=== PATIENT | male | born 1995 | race Caucasian/White ===

== ENCOUNTER 2018-01-09 21:50 | Emergency (ER) | payer SELFPAY ==
[~2018-01-09] VITALS: Ht 177.8 cm; Wt 68.9 kg
[2018-01-09 21:55] VITALS: BP 147/82
--- NOTE | 2018-01-09 22:00 | NUR ---
Pt BIBSELF FROM HOME, C/O LEFT FOOT PAIN S/P FALLING OFF STAGE. Pt DENIES ANY HEAD TRAUMA. DENIES KO. NO DEFORMITIES OF THE LEFT FOOT NOTED. Pt WAITING COMFORTABLY IN BED. NO S/S OF ACUTE DISTRESS OR SOB NOTED. VS STABLE. Pt SEEN BY MD. WAITING FOR XR TO BE DONE.
--- NOTE | 2018-01-09 22:18 | NUR ---
XR BEING DONE AT BEDSIDE
[2018-01-09] MEDS ORDERED: IBUPROFEN 400 MG TABLET PO ONE (22:30)
[2018-01-09] MEDS ORDERED: IBUPROFEN 400 MG TABLET ONE (22:32)
--- NOTE | 2018-01-09 23:30 | NUR ---
Patient discharged to home in stable condition. Written and verbal after care instructions given. Patient verbalizes understanding of instruction. Patient left with crutches; training provided. Patient's friend at bedside will be driving pt back home. No s/s of acute distress or sob noted. vs stable. ID band removed.
--- NOTE | 2018-01-14 13:00 | NUR ---
Late entry. Patient went AMA, No RT treatment was given, Medication was not dispensed out [facility].
== END 2018-01-10 | disposition home or self-care (01) ==
LOC: ER 21:54
DX: S92.355A Nondisplaced fracture of fifth metatarsal bone, left foot, initial encounter for closed fracture (principal); F10.10 Alcohol abuse, uncomplicated; F17.200 Nicotine dependence, unspecified, uncomplicated; Y90.9 Presence of alcohol in blood, level not specified; Z91.018 Allergy to other foods; W10.8XXA Fall (on) (from) other stairs and steps, initial encounter; Y93.89 Activity, other specified; Y92.89 Other specified places as the place of occurrence of the external cause; Y99.8 Other external cause status
CPT/HCPCS: 73610-TC; 73630-TC; A4606; Z7610